=== PATIENT | male | born 1945 | race Caucasian/White ===

== ENCOUNTER → 2016-12-26 | Outpatient (CLI) | payer MEDICARE, BC ==
[~2016-12-26] MED LIST: ALBU.5I NEB; ALLO300T2 PO; AMLO10TA2 PO; CHOL4POW3 PO; DICY10CA12 PO; FENO48TA PO; FERR324T4 PO; FEXO180T PO; FLUT1INH INH; GABA300C5 PO; IBUP800T23 PO; JANU50TA4 PO; LACTCAP8 PO; LEVO25TA4 PO; LOPE2CAP PO; NEBI20 PO; OMEP40CA2 PO; PROS5TAB PO; SPIR50TA PO; TEMA30CA PO; TEST1INJ3 IM; VALS1TAB64 PO; ZOLO100T PO
[2016-12-26 16:18] LABS: AUTOMATED NEUTROPHIL # 4.5 TH/MM3 (1.8-7.7); BASOPHIL % 0.7 % (0.0-2.0); EOSINOPHIL # 0.2 TH/MM3 (0-0.4); EOSINOPHIL % 2.8 % (0.0-4.0); HEMATOCRIT 46.4 % (39.0-51.0); HEMO FLAGS DIFF FINAL; LYMPH % 19.8 % (9.0-44.0); LYMPHOCYTE # 1.3 TH/MM3 (1.0-4.8); MEAN CELL VOLUME 88.4 FL (80.0-100.0); MEAN CORPUSCULAR HEMOGLOBIN 28.4 PG (27.0-34.0); MEAN CORPUSCULAR HGB CONC 32.2 % (32.0-36.0); MONO % 6.6 % (0.0-8.0); NEUT % 70.1 % (16.0-70.0); PLATELET COUNT 171 TH/MM3 (150-450); RED BLOOD COUNT 5.25 MIL/MM3 (4.50-5.90); RED CELL DISTRIBUTION WIDTH 15.2 % (11.6-17.2); WHITE BLOOD COUNT 6.4 TH/MM3 (4.0-11.0)
== END ==
LOC: PHSDC 14:01
PROVIDERS: ATTEND Pain Medicine Interventional Pain Medicine
DX: M54.5 Low back pain (principal); M48.07 Spinal stenosis, lumbosacral region; M79.662 Pain in left lower leg; M79.661 Pain in right lower leg; Z98.1 Arthrodesis status
CPT/HCPCS: 84132; 85025

== ENCOUNTER → 2017-01-02 | Day surgery (SDC) | payer MEDICARE, BC ==
[~2017-01-02] VITALS: Ht 172.7 cm; Wt 106.0 kg
[~2017-01-02] MED LIST changes: +BUPIVACAINE/EPINEPHRINE 0.25% PF 30 ML VIAL ONE; +CHLORHEXIDINE GLUCONATE 2 % 1 PACK (2 CLOTHS) TOPICAL PRN; +FAMOTIDINE 20 MG/2 ML VIAL ONE; +INSULIN HUMAN REGULAR 1,000 UNITS/10 ML VIAL SQ PRN; +LACTATED RINGER'S 1000 ML IV PRN; +LIDOCAINE 1%/EPINEPHrine 1:100,000 SOLN 30 ML VIAL ONE; +METOPROLOL TARTRATE 25 MG TAB PO PRN; +MIDAZOLAM HCL 2 MG/2 ML VIAL ONE; +POVIDONE IODINE 5% (ANTISEPSIS KIT) 4 APPLICATIONS EACH NARE PRN; +PROPOFOL 200 MG/20 ML AMP IV ONE; +SODIUM CHLORID 0.9% 500 ML IV PRN; +SODIUM CHLORIDE 0.9% 20 ML VIAL ONE; +ceFAZolin 1,000 MG/NS 100 ML IV SCH
[2017-01-02 10:13] VITALS: BP 127/79; RESP 20; TEMP 98.3; O2SAT 96
[2017-01-02 12:18] VITALS: TEMP 97.7
--- NOTE | 2017-01-02 12:53 | MP ---
cc: THANIA SLAUGHTER M.D. DATE OF SURGERY 01/02/2017 DATE OF 1945 PROCEDURE Implantation of Medtronics Quad electrodes for cluneal nerve stimulation. PREPROCEDURE DIAGNOSIS Failed back syndrome with intractable back pain. POSTPROCEDURE DIAGNOSIS Failed back syndrome with intractable back pain. PROCEDURE NOTE IV was started in the holding area. The patient was given IV antibiotics. The surgical site was marked. The compression hoses were placed on the patient's lower extremity. He was taken to the operating room, placed in the prone position. All pressure points were checked and padded. He was sedated by Anesthesia. His back was shaved and prepped with Chloraprep and draped with sterile drapes. Then in the low lumbar area the skin was infiltrated with 0.25% Marcaine containing epinephrine. Then an incision was made at approximately the L5 level and a tunneling device then was used to tunnel a Medtronics Quad electrode on each side over the sacroiliac joints. Then each electrode was anchored to the underlying tissue using two 2-0 Ethibond sutures. Then a second incision was made in the patient's left flank and a tunneling device was used to tunnel the stimulating electrodes to the left flank incision. At that location they were connected to distal extension wires by tightening David screws and covering the connection with a Silastic cover secured at both ends with 2-0 Ethibond suture. Impedance was checked and found to be appropriate in all electrodes. Then finally another short tunnel was made from the left flank incision to exit on the patient's left flank itself. Then the lumbar and left flank incision were irrigated with Betadine solution. Closure took place using 3-0 Monocryl in the subcuticular tissue and 3-0 nylon on the skin. Incisions were covered with sterile adhesive dressings and the patient was taken to the recovery room with stable vital signs, neurologically intact. W. MD SANJEEV Remy/GILMA /12:24 PM /12:51 PM
[2017-01-02 13:35] VITALS: BP 131/57; PULSE 68; RESP 14; O2SAT 96
== END | disposition home or self-care (01) ==
LOC: PHSDC 08:49
PROVIDERS: ATTEND Pain Medicine Interventional Pain Medicine
DX: M96.1 Postlaminectomy syndrome, not elsewhere classified (principal); M54.5 Low back pain; I10 Essential (primary) hypertension; E03.9 Hypothyroidism, unspecified; G62.9 Polyneuropathy, unspecified; M10.9 Gout, unspecified; Z86.73 Personal history of transient ischemic attack (TIA), and cerebral infarction without residual deficits; G89.4 Chronic pain syndrome
CPT/HCPCS: 00300; 64575; C1778; J0690; J2250; J7120

== ENCOUNTER → 2017-01-12 | Day surgery (SDC) | payer MEDICARE, BC ==
[~2017-01-12] VITALS: Ht 172.7 cm; Wt 107.0 kg
[~2017-01-12] MED LIST changes: +LACTATED RINGER'S 1000 ML INJ 1,000 ML ONE; -LIDOCAINE 1%/EPINEPHrine 1:100,000 SOLN 30 ML VIAL ONE; +MEPERIDINE HCL 25 MG/ML VIAL ONE; +ONDANSETRON HCL 4 MG/2 ML VIAL IV PUSH ONE; -SODIUM CHLORIDE 0.9% 20 ML VIAL ONE; +VANCOMYCIN 500 MG/NS 100 ML IV SCH; -ceFAZolin 1,000 MG/NS 100 ML IV SCH; +ePHEDrine/NS 25 MG/5 ML SYR IV ONE
[2017-01-12 10:20] VITALS: BP 162/98; PULSE 65; RESP 18; TEMP 97.9; O2SAT 98
[2017-01-12] MEDS: ceFAZolin 1,000 MG/NS 100 ML IV SCH ×4 (11:34→11:58)
[2017-01-12 15:00] VITALS: BP 128/82; PULSE 71; RESP 16; TEMP 98.6; O2SAT 96
--- NOTE | 2017-01-14 18:06 | MP ---
cc: THANIA SLAUGHTER M.D. DATE OF SURGERY: 01/12/2017. PROCEDURE PERFORMED: Implantation of Medtronicbarcoo dual-channel non-rechargeable pulse generator for cluneal nerve stimulation. PREPROCEDURE DIAGNOSIS: Failed back syndrome with intractable back pain. POSTPROCEDURE DIAGNOSIS: Failed back syndrome with intractable back pain. DESCRIPTION OF THE PROCEDURE IN DETAIL: IV was started in the holding area. the patient was given IV antibiotics. The surgical site was marked and all consent forms were signed. The patient was taken to the operating room and placed in the right lateral decubitus position and sedated by anesthesia with placement of an LMA. Then the distal extension wire to the patient's left flank was prepped with alcohol and cut with sterile scissors. The patient was prepped with Chloraprep and draped with sterile drapes. Then the left flank incision was infiltrated with 0.25% Marcaine containing epinephrine and the left abdominal area was also infiltrated. Then the left flank incision was opened and the distal extension wires were disconnected by loosening the David screws. Then an incision was made in the left subcostal area in the abdomen and a subcutaneous pocket was created. A tunneling device was used to tunnel distal extension wires from the abdominal incision to the left flank incision. The distal extension wires then were connected to the stimulating electrodes by tightening David screws and covering the connection with a Silastic cover secured at both ends with 2-0 Ethibond suture. Then the IPG was connected to the distal extension wire by tightening David screws. The extension wire was placed in the receptacle on the letter side of the IPG. Then a dummy plug was placed in the other port and secured by tightening the David screw. Impedance was checked at the bedside and found to be appropriate in all electrodes. Then the incisions were irrigated with Betadine. The pulse generator was placed in the subcutaneous pocket and anchored to the underlying fascia using two 2-0 Ethibond sutures. Then each incision was closed with 3-0 Monocryl in the subcuticular tissue and 3-0 nylon on the skin. The incisions were covered with sterile adhesive dressings and the patient was taken to the recovery room with stable vital signs. W. MD SANJEEV Remy/NONI /12:58 PM /5:56 PM
== END | disposition home or self-care (01) ==
LOC: PHSDC 09:08
PROVIDERS: ATTEND Pain Medicine Interventional Pain Medicine
DX: M96.1 Postlaminectomy syndrome, not elsewhere classified (principal); M54.9 Dorsalgia, unspecified; I10 Essential (primary) hypertension; E78.5 Hyperlipidemia, unspecified; J44.9 Chronic obstructive pulmonary disease, unspecified; E11.40 Type 2 diabetes mellitus with diabetic neuropathy, unspecified; E03.9 Hypothyroidism, unspecified; K21.9 Gastro-esophageal reflux disease without esophagitis; F32.9 Major depressive disorder, single episode, unspecified; E66.9 Obesity, unspecified; Z86.73 Personal history of transient ischemic attack (TIA), and cerebral infarction without residual deficits; Z96.643 Presence of artificial hip joint, bilateral
CPT/HCPCS: 00400; 63685; C1767; J0690; J2175; J2250; J2405; J3370; J7120